=== PATIENT | male | born 1965 | race American Indian/Alaskan Native ===

== ENCOUNTER 2017-07-18 08:22 | Emergency (ER) | payer SELFPAY ==
[2017-07-18 08:30] VITALS: O2SAT 99
--- NOTE | 2017-07-18 08:56 | C.PDOC ---
History Of Present Illness 52-year-old male, PMHx includes substance abuse, presents to the emergency department requesting detox. Patient denies SI/HI. Time Seen by Provider: 07/18/17 08:34 Chief Complaint (Nursing): Substance Abuse History Per: Patient Past Medical History Reviewed: Historical Data, Nursing Documentation, Vital Signs Vital Signs: Last Vital Signs Temp 98.2 F 07/18/17 09:04 Pulse 75 07/18/17 09:04 Resp 16 07/18/17 09:04 BP 130/70 07/18/17 09:04 Pulse Ox 99 07/18/17 09:04 - Medical History PMH: HTN Family History: States: No Known Family Hx - Social History Hx Alcohol Use: Yes Hx Substance Use: Yes - Immunization History Hx Tetanus Toxoid Vaccination: No Hx Influenza Vaccination: No Hx Pneumococcal Vaccination: No Review Of Systems Constitutional: Negative for: Fever Gastrointestinal: Negative for: Nausea, Vomiting Psych: Negative for: Suicidal ideation, Withdrawal Physical Exam - Physical Exam Appears: Non-toxic, No Acute Distress, Other (no signs or symptoms of withdrawal.) Head: Atraumatic, Normacephalic Eye(s): bilateral: Normal Inspection, PERRL Nose: Normal Oral Mucosa: Moist Lips: Normal Appearing Neck: Normal ROM Respiratory: No Accessory Muscle Use Extremity: Normal ROM Neurological/Psych: Oriented x3 ED Course And Treatment O2 Sat by Pulse Oximetry: 99 Medical Decision Making Medical Decision Making: There are no detox beds available at this time. Will discharge patient for outpatient f/u with clinic. Provide list of clinics and inform pt of pre-screen process. Disposition - Disposition Referrals: [facility] [Outside] [facility] [Outside] [facility] [Outside] [facility] [Outside] Disposition: HOME/ ROUTINE Disposition Time: 08:52 Condition: STABLE Additional Instructions: please call for detox bed. reutrn to er with worsening symptoms or concerns Instructions: Narcotic Abuse (ED) Forms: [facility] (Kyrgyz) - Clinical Impression Clinical Impression: Drug abuse - Scribe Statement The provider has reviewed the documentation as recorded by the Scribe (Pipo Shah) All medical record entries made by the Scribe were at my direction and personally dictated by me. I have reviewed the chart and agree that the record accurately reflects my personal performance of the history, physical exam, medical decision making, and the department course for this patient. I have also personally directed, reviewed, and agree with the discharge instructions and disposition.
[2017-07-18 09:06] VITALS: BP 130/70; PULSE 75; RESP 16; TEMP 98.2
== END 2017-07-18 09:04 | disposition home or self-care (01) ==
LOC: C.ER 08:22
DX: F19.10 Other psychoactive substance abuse, uncomplicated (principal)

== ENCOUNTER 2018-01-09 21:08 | Emergency (ER) | payer SELFPAY ==
--- NOTE | 2018-01-09 21:45 | C.PDOC ---
History Of Present Illness 52 year old male presents to the ER after being found unresponsive in his car. EMS was called, on arrival patient is alert, admits to using cocaine and heroin today, offers no complaints. Time Seen by Provider: 01/09/18 21:21 Chief Complaint (Nursing): Substance Abuse History Per: Patient History/Exam Limitations: no limitations Onset/Duration Of Symptoms: Hrs Current Symptoms Are (Timing): Still Present Suicide/Self Injury Attempted (Context): None Modifying Factor(s): Cocaine, Other Associated Symptoms: denies: Depression, Suicidal Thoughts Involuntary Hold By: None Recent travel outside of the [place]: No Past Medical History Reviewed: Historical Data, Nursing Documentation, Vital Signs Vital Signs: Last Vital Signs Temp 97.6 F 01/09/18 21:15 Pulse 71 01/09/18 21:15 Resp 18 01/09/18 21:15 BP 129/79 01/09/18 21:15 Pulse Ox 94 L 01/09/18 21:50 - Medical History PMH: HTN Family History: States: Unknown Family Hx - Social History Hx Alcohol Use: Yes Hx Substance Use: Yes - Immunization History Hx Tetanus Toxoid Vaccination: No Hx Influenza Vaccination: No Hx Pneumococcal Vaccination: No Review Of Systems Except As Marked, All Systems Reviewed And Found Negative. Physical Exam - Physical Exam Appears: Non-toxic, Other (Arousable to verbal stimuli) Skin: Normal Color, Warm, Dry Head: Atraumatic, Normacephalic Eye(s): bilateral: Other (Pin point pupils) Oral Mucosa: Moist Chest: Symmetrical, No Tenderness Cardiovascular: Rhythm Regular Respiratory: Normal Breath Sounds, No Rales, No Rhonchi, No Wheezing Gastrointestinal/Abdominal: Soft, No Tenderness Neurological/Psych: Oriented x3, Normal Speech ED Course And Treatment - Laboratory Results Result Diagrams: 01/09/18 21:50 01/09/18 21:50 O2 Sat by Pulse Oximetry: 94 (Room air) Pulse Ox Interpretation: Normal Medical Decision Making Medical Decision Making: Assessment: Substance abuse Plan: * EKG * Blood work * CXR * * ekg - nsr at rate of 55 bpm wiht nrm intevals, nrm axis, lvh, no st or twave abn. * * patient ambulatory with steady gait. * patient discharged home to follow up with medical doctor in 2 days * patient admits to cocaine and heroin use. Disposition Counseled Patient/Family Regarding: Studies Performed, Diagnosis - Disposition Referrals: Non [facility] Provider, [Primary Care Provider] - [facility] [Outside] Disposition: HOME/ ROUTINE Disposition Time: 22:34 Condition: STABLE Additional Instructions: follow up with medical clinic in 2 days call to make an appointment stop using drugs continue home medications return to ER if symptoms worsens or progress Instructions: Drug Abuse and Drug Addiction (DC) Forms: [facility] ([place] Islander), General Discharge Instructions - Clinical Impression Clinical Impression: Drug abuse - Scribe Statement The provider has reviewed the documentation as recorded by the Scribe Barrera Leroy All medical record entries made by the Bryonibe were at my direction and personally dictated by me. I have reviewed the chart and agree that the record accurately reflects my personal performance of the history, physical exam, medical decision making, and the department course for this patient. I have also personally directed, reviewed, and agree with the discharge instructions and disposition.
[2018-01-09 21:53] LABS: BASO % 0.6 % (0.0-2.0); EOS # 0.2 K/uL (0.0-0.7); EOS % 3.6 % (0.0-4.0); HEMOGLOBIN 13.4 g/dL (12.0-18.0); LYMPH # 1.5 K/uL (1.0-4.3); LYMPH % 31.3 % (20.0-40.0); MEAN CELL VOLUME 92.9 fL (80.0-94.0); MEAN CORPUSCULAR HEMOGLOBIN 31.4 pg (27.0-31.0); MEAN CORPUSCULAR HGB CONC 33.8 g/dL (33.0-37.0); MEAN PLATELET VOLUME 8.1 fL (7.2-11.7); MONO # 0.6 K/uL (0.0-0.8); NEUT # 2.5 K/uL (1.8-7.0); NEUT % 52.5 % (50.0-75.0); NRBC % 0.1 % (0.0-2.0); RBC 4.27 Mil/uL (4.40-5.90); RED CELL DISTRIBUTION WIDTH 14.8 % (11.5-14.5); WHITE BLOOD COUNT 4.8 K/uL (4.8-10.8)
[2018-01-09 22:05] LABS: ALB/GLOB RATIO 1.2 (1.0-2.1); ALBUMIN 3.7 g/dL (3.5-5.0); ALT/SGPT 19 U/L (21-72); AST/SGOT 55 U/L (17-59); BLOOD UREA NITROGEN 11 mg/dL (9-20); GFR AFRICAN-AMERICAN > 60; GFR NON-AFRICAN AMERICAN > 60
[2018-01-09 22:53] VITALS: BP 100/60; PULSE 64; RESP 20; TEMP 98; O2SAT 100
--- NOTE | 2018-01-10 08:20 | RAD ---
Chest x-ray single frontal view History: Shortness of breath. Comparison: None available. Findings: Mild to moderate venous congestion with right basilar patchy consolidative changes. Right hilar prominence. Mild cardiomegaly. Degenerative changes in the spine and shoulders. Deformity of the mid left clavicle. Lucency under the right hemidiaphragm may represent colonic interposition. Clinical correlation. Impression: Mild to moderate venous congestion with right basilar patchy consolidative changes. Right hilar prominence. Mild cardiomegaly. Degenerative changes in the spine and shoulders. Deformity of the mid left clavicle. Lucency under the right hemidiaphragm may represent colonic interposition. Clinical correlation.
--- NOTE | 2018-01-10 16:26 | CARD ---
APPROVED REPORT EKG Measurement Heart [id number] <Conclusion> Sinus bradycardia Minimal voltage criteria for LVH, may be normal variant Borderline ECG
== END 2018-01-09 22:55 | disposition home or self-care (01) ==
LOC: C.ER 21:08 → SUPCPDRO 21:08 → C.ER 22:55
DX: F19.10 Other psychoactive substance abuse, uncomplicated (principal); I10 Essential (primary) hypertension
CPT/HCPCS: 71045; 80053; 82948; 85025; 93005; 99283; G0480